=== PATIENT | female | born 1945 | race Caucasian/White ===

== ENCOUNTER → 2018-05-28 10:38 | Outpatient (CLI) | payer SELFPAY ==
[2018-05-28 12:30] LABS: Absolute Lymphocyte Count 2.32 X10^3/ul (0.83-4.51); Absolute Neutrophil Count 3.4 X10^3/uL (2.0-7.7); Basophil# 0.03 X10^3/uL; Basophil% 0.5 % (0-1); Eosinophil# 0.16 X10^3/uL; Eosinophils% 2.5 % (0-5); Hemoglobin 12.5 g/dl (12.0-15.0); Lymphocyte # 2.32 X10^3/ul (4.0); Lymphocyte % 36.7 % (19-41); Mean Corp Hgb Conc 32.1 g/gl (32-36); Mean Corpuscular Hgb 31.3 pg (27.0-32.0); Mean Corpuscular Volume 97.7 fL (81-99); Monocyte# 0.39 X10^3/uL; Monocyte% 6.2 % (0-10); Neutrophil # 3.42 X10^3/uL (2.7-7.7); Neutrophil % 53.9 % (47-70); Platelet Count 251 K/mm3 (150-450); RBC Distribution Width CV 14.4 % (11.6-14.6); RBC Distribution Width SD 51.9 fl (35.1-43.9); Red Blood Count 3.99 M/mm3 (4.2-5.4); White Blood Count 6.3 K/mm3 (4.4-11.0)
[2018-05-28 12:36] LABS: POSITIVE COUNT NO; POSITIVE DIFFERENTIAL NO; POSITIVE MORPHOLOGY NO
[2018-05-28 12:43] LABS: Vitamin D,25 Hydroxy 29.4 ng/mL (29.95-100.01)
[2018-05-28 13:01] LABS: ALB/GLOB Ratio 0.9 RATIO (0.9-2.4); AST(SGOT) 31 U/L (15-37); Alanine Aminotransfer ALT/SGPT 27 U/L (13-56); Albumin, Serum 3.5 g/dL (3.2-5.0); Alkaline Phosphatase 58 U/L (45-117); Anion Gap 7 (5-15); BUN 23 mg/dL (7-18); BUN/Creat Ratio 24.5 RATIO (10-20); Calcium,Total 9.5 mg/dL (8.5-10.1); Chloride 105 mmol/L (98-107); Creatinine, Serum 0.94 mg/dL (0.55-1.02); EST Glomerular Filtration Rate 62 mL/min (>60); Est Glom Filt Rate - Afr Amer 75 mL/min (>60); Globulin 3.7 g/dL (2.2-4.2); Glucose 111 mg/dL (74-106); Potassium 4.4 mmol/L (3.5-5.1); Protein, Total 7.2 g/dL (6.4-8.2); Sodium Level 140 mmol/L (136-145); Thyroid Stim Hormone (TSH) 3.75 uIU/mL (0.358-3.74)
[2018-05-29 08:45] LABS: Hep C Antibodies 0.1 s/co ratio (0.0-0.9)
--- OUTSIDE RECORDS SUMMARY | 2018-07-21 16:03 | XMS RPT_ITS ---
:1945 Author Organization OHIP Care Team Providers Name Role Phone BUSHRA BELL MD Admitting Unavailable BUSHRA BELL MD Attending Unavailable BUSHRA BELL MD Primary Care Unavailable KENNEDY, JOSE Consulting Unavailable PROVIDER, UNKNOWN Consulting Unavailable PROVIDER, UNKNOWN Consulting Unavailable PROVIDER, UNKNOWN Consulting Unavailable BUSHRA BELL MD Admitting Unavailable BUSHRA BELL MD Attending Unavailable BUSHRA BELL MD Primary Care Unavailable KENNEDY, JOSE Consulting Unavailable PROVIDER, UNKNOWN Consulting Unavailable PROVIDER, UNKNOWN Consulting Unavailable PROVIDER, UNKNOWN Consulting Unavailable BUSHRA BELL MD Admitting Unavailable BUSHRA BELL MD Attending Unavailable BUSHRA BELL MD Primary Care Unavailable KENNEDY, JOSE Consulting Unavailable PROVIDER, UNKNOWN Consulting Unavailable PROVIDER, UNKNOWN Consulting Unavailable PROVIDER, UNKNOWN Consulting Unavailable Akil Huang Chi Attending Unavailable PROBLEMS PROBLEMS DATE TYPE CONDITION / CODE ATTENDING STATUS SOURCE Principle Pure BUSHRA BELL Diagnosis hypercholesterolemia, [facility] E7800(ICD-10) Repository Principle Pure hypercholesterolemia BUSHRA BELL Diagnosis / E780(ICD-10) [facility] Repository PROCEDURES PROCEDURES No Procedure Records FoundRESULTS RESULTS CBC W/DIFF, AUTOMATED Collected: 05/28/2018 Status: F Source: [place] 10:44 AM [facility] REPOSITORY TYPE CODE TESTS RESULT OUT OF RANGE REFERENCE UNITS LAB L100.1000 4.4-11.0 K/mm3 Normal WBC 6.3 LAB L100.1200 4.2-5.4 M/mm3 Low RBC 3.99 LAB L100.1300 12.0-15.0 g/dl Normal HGB 12.5 LAB L100.1400 37-47 % Normal HCT 39.0 LAB L100.1500 81-99 fL Normal MCV 97.7 LAB L100.1600 27.0-32.0 pg Normal MCH 31.3 LAB L100.1700 32-36 g/gl Normal MCHC 32.1 LAB L100.1810 11.6-14.6 % Normal RDW CV 14.4 LAB L100.1820 35.1-43.9 fl High RDW SD 51.9 LAB L100.1900 150-450 K/mm3 Normal PLT 251 LAB L100.2000 6.2-12.0 fl Normal MPV 10.0 LAB L100.2100 47-70 % Normal NEUT% 53.9 LAB L100.2200 19-41 % Normal LY% 36.7 LAB L100.2300 0-10 % Normal MONO% 6.2 LAB L100.2400 0-5 % Normal EO% 2.5 LAB L100.2500 0-1 % Normal BASO% 0.5 LAB L100.2550 0.0-0.9 % Normal IM GRAN % 0.200 Result Comment: IG% - Immature Granulocytes (promyelocytes, myelocytes and metamyelocytes) > 1% indicates that a LEFT SHIFT is Present. LAB L100.2620 2.0-7.7 X10 3/uL Normal Absolute Neut 3.4 LAB L100.2720 0.83-4.51 X10 3/ul Normal Absolute Lymph 2.32 Performed By: #### L100.0100 #### [facility] [place], [place], [address] VITAMIN D,25 HYDROXY Collected: 05/28/2018 Status: F Source: [place] 10:44 AM [facility] REPOSITORY TYPE CODE TESTS RESULT OUT OF REFERENCE UNITS RANGE LAB L506.1000 29.95-100.01 ng/mL Low Vitamin D 29.4 25-OH Result Comment: Vitamin D 25(OH) Status Range Deficiency <20 ng/mL (50nmol/L) Insuffciency 20 - 30 ng/mL (50 - 75 nmol/L) Sufficiency 30 - 100 ng/mL (75 - 250 nmol/L) Toxicity >100 ng/mL (>250 nmol/L) Performed By: #### L506.1000 #### [facility] [address] [place], [address] COMPREHENSIVE METABOLIC Collected: 05/28/2018 Status: F Source: [place] 10:44 AM [facility] REPOSITORY TYPE CODE TESTS RESULT OUT OF RANGE REFERENCE UNITS LAB L501.0100 74-106 mg/dL High GLU 111 Result Comment: Fasting Glucose result from 100 to 125 mg/dL suggests IMPAIRED HOMEOSTASIS per A.D.A. criteria. Please note revised GLUCOSE reference range effective 2017. LAB L501.1000 7-18 mg/dL High BUN 23 LAB L501.1100 0.55-1.02 mg/dL Normal CREAT,SERUM 0.94 Result Comment: The validity of the calculated GFR AND GFRAA in patients over 70 years has not been determined. Clinical correlation is essential. LAB L501.1110 >60 mL/min Normal EST GFR 62 Result Comment: Non- GFR Calc LAB L501.1115 >60 mL/min Normal EST GFR - AA 75 Result Comment: GFR Calc LAB L501.1300 10-20 RATIO High BUN/CRE 24.5 LAB L501.1500 6.4-8.2 g/dL T Normal PROT 7.2 LAB L501.1800 3.2-5.0 g/dL Normal ALB 3.5 LAB L501.1950 2.2-4.2 g/dL Normal GLOB 3.7 LAB L501.2000 0.9-2.4 RATIO Normal A/G 0.9 LAB L501.2200 8.5-10.1 mg/dL CA Normal 9.5 LAB L501.4100 15-37 U/L Normal AST 31 LAB L501.4305 45-117 U/L Normal ALK P 58 LAB L501.4405 13-56 U/L Normal ALT 27 LAB L501.4600 0.20-1.00 mg/dL T Normal BILI 0.40 LAB L501.5300 136-145 mmol/L NA Normal 140 LAB L501.5600 3.5-5.1 mmol/L K Normal 4.4 LAB L501.5900 98-107 mmol/L CL Normal 105 LAB L501.6100 21.0-32.0 mmol/L Normal CO2 28.0 LAB L501.6200 5-15 Normal GAP 7 Performed By: #### L500.4050, L501.9520 #### [facility] [address] [place], [address] THYROID STIM HORMONE Collected: 05/28/2018 Status: F Source: [place] (TSH) 10:44 AM [facility] REPOSITORY TYPE CODE TESTS RESULT OUT OF RANGE REFERENCE UNITS LAB L501.9520 0.358-3.74 uIU/mL High TSH 3.75 Performed By: #### L500.4050, L501.9520 #### [facility] [address] [place], [address] HEPATITIS C ANTIBODIES Collected: 05/28/2018 Status: F Source: [place] 10:44 AM [facility] REPOSITORY TYPE CODE TESTS RESULT OUT OF RANGE REFERENCE UNITS LAB L3100.0650 0.0-0.9 s/co ratio Normal HEP C AB 0.1 Result Comment: Negative: < 0.8 Indeterminate: 0.8 - 0.9 Positive: > 0.9 The CDC recommends that a positive HCV antibody result be followed up with a HCV Nucleic Acid Amplification test (012840). Performed at: [facility] [id number] Immigration Case Worker: Kameron Perez PhD, Phone: [phone] Performed By: #### L3100.0625 #### [facility] (refer to report for specific site) refer to report for address and phone number ALLERGIES ALLERGIES DATE TYPE / CODE NAME / CODE REACTION SEVERITY SOURCE Miscellaneous No Known Drug Moderate Matty Vasquez Allergy/[id number](S Allergies ([facility]) Modifier) Hospital (Qualifier Repository Value) ENCOUNTERS ENCOUNTERS ADMIT/DISCHARGE ACCOUNT ADMITTING ENCOUNTER LOCATION SOURCE NUMBER CLASS 05/28/2018 [id number] Ambulatory [facility] 4 [facility] ing:POLAB3 Repository 09/07/2017 [id number] BUSHRA BELL Ambulatory Matty Vasquez [facility] Repository 09/07/2017 [id number] BUSHRA BELL Ambulatory Matty Vasquez [facility] Repository 09/07/2017 [id number] [facility] PAYERS PAYERS ENCOUNTER GUARANTOR PAYER SUBSCRIBER SOURCE 05/28/2018 NATALY [id number] Primary NOT GIVENUNK [place] [address] Insurance:SELF PAY [address] [address]Ukt: Number: [facility] Date:2018-05-28 ()
== END ==
PROVIDERS: Visit Provider Family Medicine Geriatric Medicine
DX: E55.9 Vitamin D deficiency, unspecified (principal); R53.83 Other fatigue; Z13.89 Encounter for screening for other disorder
CPT/HCPCS: 36415; 80053; 82306; 84443; 85025; 86803

== ENCOUNTER → 2018-07-26 11:44 | Outpatient (CLI) | payer SELFPAY ==
[2018-07-26 13:00] LABS: Thyroid Stim Hormone (TSH) 1.86 uIU/mL (0.358-3.74)
== END ==
PROVIDERS: Visit Provider Family Medicine Geriatric Medicine
DX: E03.9 Hypothyroidism, unspecified (principal)
CPT/HCPCS: 36415; 84443

== ENCOUNTER → 2018-11-01 15:52 | Outpatient (CLI) | payer SELFPAY ==
[2018-11-01 17:27] LABS: Absolute Lymphocyte Count 2.02 X10^3/ul (0.83-4.51); Basophil# 0.03 X10^3/uL; Basophil% 0.6 % (0-1); Eosinophil# 0.14 X10^3/uL; Eosinophils% 2.9 % (0-5); Hematocrit 38.5 % (37-47); Hemoglobin 12.4 g/dl (12.0-15.0); Lymphocyte # 2.02 X10^3/ul (4.0); Lymphocyte % 41.8 % (19-41); Mean Corp Hgb Conc 32.2 g/gl (32-36); Mean Corpuscular Hgb 31.3 pg (27.0-32.0); Mean Corpuscular Volume 97.2 fL (81-99); Mean Platelet Vol. 10.4 fl (6.2-12.0); Monocyte# 0.67 X10^3/uL; Monocyte% 13.9 % (0-10); Neutrophil # 1.96 X10^3/uL (2.7-7.7); Neutrophil % 40.6 % (47-70); Platelet Count 230 K/mm3 (150-450); RBC Distribution Width CV 14.9 % (11.6-14.6); Red Blood Count 3.96 M/mm3 (4.2-5.4); White Blood Count 4.8 K/mm3 (4.4-11.0)
[2018-11-01 17:34] LABS: POSITIVE COUNT NO; POSITIVE DIFFERENTIAL NO; POSITIVE MORPHOLOGY NO
[2018-11-01 18:08] LABS: Vitamin D,25 Hydroxy 20.7 ng/mL (29.95-100.01)
[2018-11-01 18:34] LABS: AST(SGOT) 34 U/L (15-37); Alanine Aminotransfer ALT/SGPT 29 U/L (13-56); Albumin, Serum 3.7 g/dL (3.2-5.0); Alkaline Phosphatase 50 U/L (45-117); Anion Gap 9 (5-15); BUN 22 mg/dL (7-18); Calcium,Total 8.9 mg/dL (8.5-10.1); Chloride 105 mmol/L (98-107); Cholesterol 255 mg/dL (200); Creatinine, Serum 0.92 mg/dL (0.55-1.02); EST Glomerular Filtration Rate 64 mL/min (>60); Est Glom Filt Rate - Afr Amer 77 mL/min (>60); Globulin 3.8 g/dL (2.2-4.2); Glucose 62 mg/dL (74-106); High Density Lipoprotein 95 mg/dL; Potassium 4.4 mmol/L (3.5-5.1); Protein, Total 7.5 g/dL (6.4-8.2); Sodium Level 138 mmol/L (136-145); Thyroid Stim Hormone (TSH) 2.43 uIU/mL (0.358-3.74); Triglycerides 33 mg/dL; Very Low Density Lipoprotein 7 mg/dL (5-40)
== END ==
PROVIDERS: Visit Provider Family Medicine Geriatric Medicine
DX: E55.9 Vitamin D deficiency, unspecified (principal); E78.5 Hyperlipidemia, unspecified; R53.83 Other fatigue
CPT/HCPCS: 36415; 80053; 80061; 82306; 84443; 85025

== ENCOUNTER → 2018-12-17 14:26 | Outpatient (CLI) | payer SELFPAY ==
[2018-11-28 16:05] VITALS: BMI 27.6
--- NOTE | 2018-12-17 14:32 | ECHOD_ITS ---
Reason For Study: Arrhythmia Procedure This was a 2D Doppler, Color Flow transthoracic echocardiogram. Exam performed in department. Left Ventricle Normal LV size. Left ventricular systolic function is normal. The estimated ejection fraction is 60 %. Stage 1 diastolic dysfunction. No regional wall motion abnormalities noted. Right Ventricle Normal RV size. Normal systolic function. Atria Normal left atrium. Normal right atrium. Mitral Valve Normal mitral valve. Mild (1+) mitral valve insufficiency. Tricuspid Valve Normal tricuspid valve. Aortic Valve Normal aortic valve. Trisinus/trileaflet aortic valve. Trivial aortic valve insufficiency. Pulmonic Valve Normal pulmonic valve. Great Vessels Normal aortic root. The pulmonary artery is normal size. Normal inferior vena cava. Pericardium/Pleural No pericardial effusion. MMode/2D Measurements & Calculations RVDd: 2.7 cm Ao root diam: 3.1 cm LAV(MOD-bp): 32.7 ml LAV(MOD-bp) Indexed: 19.9 ml/m2 LAV(MOD-sp2): 32.0 ml LAV(MOD-sp4): 32.2 ml LA dimension(2D): 3.6 cm LA A4 area: 13.1 cm2 RA A4 area: 12.2 cm2 Doppler Measurements & Calculations MV E max thom: 46.9 cm/sec Lat Peak E' Thom: 3.9 cm/sec Med Peak E' Thom: 7.0 cm/sec MV A max thom: 70.7 cm/sec E/E' lat: 11.9 E/E' med: 6.7 MV E/A: 0.66 Ao V2 max: 122.8 cm/sec AI max thom: 407.9 cm/sec LV V1 max: 99.1 cm/sec Ao max P.0 mmHg AI max P.6 mmHg LV V1 max P.9 mmHg AI dec slope: 268.4 cm/sec2 AI P1/2t: 445.2 msec PA V2 max: 110.3 cm/sec TR max thom: 248.6 cm/sec TR max P.9 mmHg Interpretation Summary Normal LV size. Left ventricular systolic function is normal. The estimated ejection fraction is 60 %. No regional wall motion abnormalities noted. Stage 1 diastolic dysfunction. Trivial aortic valve insufficiency. Ordering Physician: Cem Jean Baptiste Referring Physician: Akil Huang Chi Performed By: Mee Platt RDCS
== END ==
PROVIDERS: Family Provider Family Medicine Geriatric Medicine; PCP Family Medicine Geriatric Medicine; Referring Provider Internal Medicine Cardiovascular Disease; Visit Provider Internal Medicine Cardiovascular Disease
DX: R00.2 Palpitations (principal)
CPT/HCPCS: 93306

== ENCOUNTER → 2019-05-06 10:41 | Outpatient (CLI) | payer OTHER, SELFPAY ==
[2018-11-28 16:05] VITALS: BMI 27.6
[2019-05-06 12:23] LABS: Absolute Lymphocyte Count 1.89 X10^3/uL (0.83-4.51); Absolute Neutrophil Count 3.2 X10^3/uL (2.0-7.7); Basophil# 0.04 X10^3/uL; Basophil% 0.7 % (0-1); Eosinophil# 0.23 X10^3/uL; Eosinophils% 3.9 % (0-5); Hematocrit 36.6 % (37-47); Hemoglobin 11.8 g/dL (12.0-15.0); Lymphocyte # 1.89 X10^3/ul (4.0); Lymphocyte % 32.4 % (19-41); Mean Corp Hgb Conc 32.2 g/dL (32-36); Mean Corpuscular Hgb 31.8 pg (27.0-32.0); Mean Corpuscular Volume 98.7 fL (81-99); Mean Platelet Vol. 10.4 fl (6.2-12.0); Monocyte# 0.45 X10^3/uL; Monocyte% 7.7 % (0-10); NRBC Flagged by Analyzer 0 % (0-5); Neutrophil # 3.22 X10^3/uL (2.7-7.7); Neutrophil % 55.1 % (47-70); Platelet Count 235 K/mm3 (150-450); RBC Distribution Width SD 50.5 fl (35.1-43.9); Red Blood Count 3.71 M/mm3 (4.2-5.4); White Blood Count 5.8 K/mm3 (4.4-11.0)
[2019-05-06 12:44] LABS: Vitamin D,25 Hydroxy 27.2 ng/mL (29.95-100.01)
[2019-05-06 12:52] LABS: BUN 26 mg/dL (7-18); BUN/Creat Ratio 26.4 RATIO (10-20); Creatinine, Serum 0.99 mg/dL (0.55-1.02); EST Glomerular Filtration Rate 59 mL/min (>60); Est Glom Filt Rate - Afr Amer 71 mL/min (>60); Glucose 87 mg/dL (74-106)
[2019-05-06 12:53] LABS: ALB/GLOB Ratio 0.9 RATIO (0.9-2.4); AST(SGOT) 23 U/L (15-37); Alanine Aminotransfer ALT/SGPT 23 U/L (13-56); Albumin, Serum 3.2 g/dL (3.2-5.0); Alkaline Phosphatase 51 U/L (45-117); Anion Gap 7 (5-15); Calcium,Total 9.2 mg/dL (8.5-10.1); Chloride 107 mmol/L (98-107); Globulin 3.5 g/dL (2.2-4.2); Potassium 4.5 mmol/L (3.5-5.1); Protein, Total 6.7 g/dL (6.4-8.2); Sodium Level 141 mmol/L (136-145); Thyroid Stim Hormone (TSH) 2.05 uIU/mL (0.358-3.74)
== END ==
PROVIDERS: Family Provider Family Medicine Geriatric Medicine; PCP Family Medicine Geriatric Medicine; Visit Provider Family Medicine Geriatric Medicine
DX: E55.9 Vitamin D deficiency, unspecified (principal); R53.83 Other fatigue
CPT/HCPCS: 36415; 80053; 82306; 84443; 85025

== ENCOUNTER → 2019-11-07 11:31 | Outpatient (CLI) | payer SELFPAY ==
[2018-11-28 16:05] VITALS: BMI 27.6
[2019-11-07 12:33] LABS: Absolute Neutrophil Count 2.8 X10^3/uL (2.0-7.7); Basophil# 0.04 X10^3/uL; Basophil% 0.7 % (0-1); Eosinophil# 0.22 X10^3/uL; Eosinophils% 3.6 % (0-5); Hematocrit 38.3 % (37-47); Hemoglobin 12.4 g/dL (12.0-15.0); Lymphocyte % 40.8 % (19-41); Mean Corp Hgb Conc 32.4 g/dL (32-36); Mean Corpuscular Hgb 31.3 pg (27.0-32.0); Mean Corpuscular Volume 96.7 fL (81-99); Mean Platelet Vol. 9.9 fl (6.2-12.0); Monocyte# 0.54 X10^3/uL; Monocyte% 8.8 % (0-10); NRBC Flagged by Analyzer 0 % (0-5); Neutrophil # 2.81 X10^3/uL (2.7-7.7); Neutrophil % 45.9 % (47-70); Platelet Count 229 K/mm3 (150-450); RBC Distribution Width SD 49.6 fl (35.1-43.9); Red Blood Count 3.96 M/mm3 (4.2-5.4); White Blood Count 6.1 K/mm3 (4.4-11.0)
[2019-11-07 12:53] LABS: Vitamin D,25 Hydroxy 39.8 ng/mL
[2019-11-07 13:01] LABS: ALB/GLOB Ratio 0.9 RATIO (0.9-2.4); AST(SGOT) 29 U/L (15-37); Alanine Aminotransfer ALT/SGPT 31 U/L (13-56); Albumin, Serum 3.5 g/dL (3.2-5.0); Alkaline Phosphatase 56 U/L (45-117); Anion Gap 7 (5-15); BUN 28 mg/dL (7-18); BUN/Creat Ratio 30.1 RATIO (10-20); Calcium,Total 9.9 mg/dL (8.5-10.1); Chloride 103 mmol/L (98-107); Creatinine, Serum 0.93 mg/dL (0.55-1.02); EST Glomerular Filtration Rate 62 mL/min (>60); Est Glom Filt Rate - Afr Amer 76 mL/min (>60); Globulin 3.8 g/dL (2.2-4.2); Glucose 79 mg/dL (74-106); Potassium 4.6 mmol/L (3.5-5.1); Protein, Total 7.3 g/dL (6.4-8.2); Sodium Level 140 mmol/L (136-145); Thyroid Stim Hormone (TSH) 2.63 uIU/mL (0.358-3.74)
== END ==
PROVIDERS: PCP Family Medicine Geriatric Medicine; Visit Provider Family Medicine Geriatric Medicine
DX: E55.9 Vitamin D deficiency, unspecified (principal); R53.83 Other fatigue
CPT/HCPCS: 36415; 80053; 82306; 84443; 85025

== ENCOUNTER 2020-04-07 19:57 | Emergency (ER) | payer OTHER, SELFPAY ==
[2018-11-28 16:05] VITALS: BMI 27.6
[2020-04-07 19:58] VITALS: BP 147/95; PULSE 96; RESP 16; TEMP 36.3; O2SAT 99; BMI 26.6
--- NOTE | 2020-04-07 20:11 | ED.DCSUM_ITS ---
History of Present Illness Chief Complaint: General Illness Detail of Chief Complaint: Abdominal discomfort, nausea, diarrhea, aches and headache Informant: Patient, Family Onset: Weeks Context: Sudden Onset Timing: Continuous Quality: Headache and GI symptoms with decreased appetite Location: Generalized Current Severity: Mild Maximum Severity: Moderate Worsened by: Nothing Relieved by: Nothing Associated Symptoms: Subjective fever. Decreased appetite. Decreased urine output, orthostatic Narrative: Patient is 74-year-old woman with no sniffing past medical history presents with generalized illness started 1 week ago. She does complain of head discomfort aches. She developed abdominal fullness/nausea with onset of diarrhea 3 to 4 days ago. States she is having watery stools. She only had 1 watery stool today. She denies blood or mucus. Denies blood or coffee grounds in emesis. She denies documented fever. She complains of subjective fever. She denies photophobia, neck pain or neck stiffness. She denies upper respiratory symptoms. She denies loss of taste or smell. She denies ill contacts. She denies dysuria, frequency, urgency or hematuria. She denies rash. Prior similar symptoms: No Recent Illness/Hospitalization: No - Past Medical History (1) Hyperlipidemia Status: Chronic Past Medical History - Allergies and Home Meds Allergies/Adverse Reactions: Allergies No Known Allergies Allergy (Verified 04/07/20 20:00) Primary Care Physician: Akil Huang Chi, MD [Primary Care Provider] - Prior records reviewed: Yes Surgical History: no surgical history Lives: With Family Smoking Status: Never smoker Alcohol: None Drugs: None Review of Systems General: Reports: Fever, Malaise, Subjective. Denies: Chills, Sweats, Weight loss Eyes: Denies: Visual changes - bilaterally, Blurred Vision - bilaterally ENT: Denies: Bilateral ear pain, Rhinorrhea, Sore throat Cardiovascular: Denies: Chest pain, Palpitations Respiratory: Denies: Dyspnea, Cough, Sputum, Dyspnea on exertion Gastrointestinal: Reports: Abdominal pain, Nausea, Diarrhea. Denies: Vomiting, Melena, Hematochezia Genitourinary: Denies: Dysuria, Hematuria, Frequency Musculoskeletal: Reports: Myalgias, Arthralgias. Denies: Neck pain, Back pain, Swelling, Extremity Pain, -, - Skin: Denies: Rash, Wounds Neurological: Reports: Headache, Weakness. Denies: Parasthesia, Numbness Endocrine: Denies: Polyuria, Polydipsia Hematologic: Denies: Easy bruising, Easy bleeding Allergy: Denies: Uticaria Physical Exam Vital Signs/Narrative: Vital Signs Temp Pulse Resp BP Pulse Ox 04/07/20 19:58 97.3 F L 96 16 147/95 H 99 Inital Vital Signs reviewed: Yes General: Well nourished, Well developed, - - Appears ill but not toxic. Head: Normocephalic, Atraumatic Eyes: Perrl, EOMI. Negative for: Pale conjunctiva, Scleral icterus ENT: No rhinorrhea, TM's clear, Dry mucous membranes. Negative for: Nasal congestion Neck: Supple, Nontender, No lymphadenopathy, No JVD Cardiovascular: Regular rate, Regular rhythm, No murmurs, Normal S1, Normal S2 Respiratory: No distress, CTA bilaterally, Chest nontender Abdomen: Soft, Nontender, Nondistended, Normal bowel sounds, No masses Rectal: Deferred Back: Nontender, Normal Inspection Extremities: Nontender, No edema Skin: Normal color, No rash Neurological: Alert, Oriented x3, Cranial nerves II-XII grossly intact, Normal Strength, Normal Sensation, Normal Gait Psychological: Normal affect Diagnostic/Tx/Re-eval Laboratory Results 04/07/20 04/07/20 20:15 20:15 WBC 3.2 L RBC 4.25 Hgb 13.6 Hct 40.6 MCV 95.5 MCH 32.0 MCHC 33.5 RDW Std Deviation 47.3 H RDW Coeff of Chandan 13.4 Plt Count 175 MPV 10.0 Immature Gran % (Auto) 0.600 Neut % (Auto) 55.5 Lymph % (Auto) 34.0 [place] % (Auto) 9.6 Eos % (Auto) 0.0 Baso % (Auto) 0.3 Absolute Neuts (auto) 1.8 L Absolute Lymphs (auto) 1.10 Nucleated RBC % 0 Sodium 135 L Potassium 3.5 Chloride 101 Carbon Dioxide 27.0 Anion Gap 7 BUN 9 Creatinine 0.86 Estim Creat Clear Calc 42.65 Est GFR (MDRD) Af Amer 82 Est GFR (MDRD) Non-Af 68 BUN/Creatinine Ratio 10.4 Glucose 99 Calcium 9.2 There is no evidence of renal failure and with a low white count will test for COVID. Patient's been informed that she has a viral infection and this may represent COVID. She was discharged with prescription for Zofran ODT and Imodium - Medical Decision Making Patient symptoms consistent with viral-like illness. No known exposure to COVID or anyone ill. Because of poor p.o. intake decreased urine output and clinically patient is dehydrated will obtain basic metabolic panel/electrolytes and renal function. He does appear slightly pale and reason for CBC to evaluate for anemia. She received 4 mg of Zofran for her nausea and 1 L of normal saline. ED Disposition - Plan for ED Patient: Disposition: Home or Assisted Living Diagnosis: Viral infection of digestive tract, Suspected COVID-19 virus infection Instructions: ED Viral Syndrome Prescriptions: Loperamide [Imodium] 2 mg PO Q4H PRN PRN #20 cap PRN Reason: Diarrhea Transmission Status: [facility] to [id number] Ondansetron [Zofran Odt] 4 mg PO Q8H PRN PRN #10 tab PRN Reason: Nausea Transmission Status: Pending to [id number] Referrals: Akil Huang Chi, MD [Primary Care Provider] - 1 Week if not improving Additional Instructions: You need to self quarantine until your COVID test results are known.
[2020-04-07] MEDS: Ondansetron 4 MG/2 ML Vial IV (20:19)
[2020-04-07] MEDS: 0.9% Normal Saline 1,000 ML 1000 ML IV (20:19)
[2020-04-07 20:29] LABS: Absolute Neutrophil Count 1.8 X10^3/uL (2.0-7.7); Basophil# 0.01 X10^3/uL; Basophil% 0.3 % (0-1); Hematocrit 40.6 % (37-47); Hemoglobin 13.6 g/dL (12.0-15.0); Mean Corp Hgb Conc 33.5 g/dL (32-36); Mean Corpuscular Volume 95.5 fL (81-99); Monocyte# 0.31 X10^3/uL; Monocyte% 9.6 % (0-10); NRBC Flagged by Analyzer 0 % (0-5); Neutrophil % 55.5 % (47-70); Platelet Count 175 K/mm3 (150-450); RBC Distribution Width CV 13.4 % (11.6-14.6); RBC Distribution Width SD 47.3 fl (35.1-43.9); Red Blood Count 4.25 M/mm3 (4.2-5.4); White Blood Count 3.2 K/mm3 (4.4-11.0)
[2020-04-07 20:50] LABS: Anion Gap 7 (5-15); BUN 9 mg/dL (7-18); BUN/Creat Ratio 10.4 RATIO (10-20); Calcium,Total 9.2 mg/dL (8.5-10.1); Chloride 101 mmol/L (98-107); Creatinine, Serum 0.86 mg/dL (0.55-1.02); EST Glomerular Filtration Rate 68 mL/min (>60); Est Glom Filt Rate - Afr Amer 82 mL/min (>60); Estimated Creatinine Clearance 42.65 ml/min; Glucose 99 mg/dL (74-106); Potassium 3.5 mmol/L (3.5-5.1); Sodium Level 135 mmol/L (136-145)
[2020-04-07] MEDS: Loperamide 2 MG Capsule 4 MG PO (21:47)
[2020-04-07 21:50] VITALS: TEMP 37.6
[2020-04-07] MEDS: Acetaminophen 325 MG Tablet 650 MG PO (22:02)
== END 2020-04-07 22:03 | disposition home or self-care (01) ==
PROVIDERS: Emergency Provider Emergency Medicine; PCP Family Medicine Geriatric Medicine
DX: U07.1 COVID-19 (principal); E78.5 Hyperlipidemia, unspecified
CPT/HCPCS: 80048; 85025; 87635; 96361; 96374; 99281; J7030; A4216; J2405; U0003

== ENCOUNTER → 2020-05-07 10:47 | Outpatient (CLI) | payer SELFPAY ==
[2020-04-07 19:58] VITALS: BMI 26.6
[2020-05-07 12:31] LABS: Absolute Lymphocyte Count 2.16 X10^3/uL (0.83-4.51); Absolute Neutrophil Count 3.4 X10^3/uL (2.0-7.7); Basophil% 1.5 % (0-1); Eosinophil# 0.42 X10^3/uL; Eosinophils% 6.4 % (0-5); Hematocrit 38.1 % (37-47); Hemoglobin 12.1 g/dL (12.0-15.0); Lymphocyte # 2.16 X10^3/ul (4.0); Lymphocyte % 32.9 % (19-41); Mean Corp Hgb Conc 31.8 g/dL (32-36); Mean Corpuscular Hgb 31.1 pg (27.0-32.0); Mean Corpuscular Volume 97.9 fL (81-99); Mean Platelet Vol. 9.8 fl (6.2-12.0); Monocyte# 0.48 X10^3/uL; Monocyte% 7.3 % (0-10); NRBC Flagged by Analyzer 0 % (0-5); Neutrophil # 3.37 X10^3/uL (2.7-7.7); Neutrophil % 51.4 % (47-70); Platelet Count 242 K/mm3 (150-450); RBC Distribution Width CV 13.8 % (11.6-14.6); RBC Distribution Width SD 50.1 fl (35.1-43.9); Red Blood Count 3.89 M/mm3 (4.2-5.4); White Blood Count 6.6 K/mm3 (4.4-11.0)
[2020-05-07 12:47] LABS: Vitamin D,25 Hydroxy 69.6 ng/mL
[2020-05-07 12:54] LABS: ALB/GLOB Ratio 0.9 RATIO (0.9-2.4); AST(SGOT) 25 U/L (15-37); Alanine Aminotransfer ALT/SGPT 24 U/L (13-56); Albumin, Serum 3.4 g/dL (3.2-5.0); Alkaline Phosphatase 55 U/L (45-117); Anion Gap 5 (5-15); BUN 20 mg/dL (7-18); BUN/Creat Ratio 19.4 RATIO (10-20); Calcium,Total 9.6 mg/dL (8.5-10.1); Chloride 108 mmol/L (98-107); Creatinine, Serum 1.03 mg/dL (0.55-1.02); EST Glomerular Filtration Rate 56 mL/min (>60); Est Glom Filt Rate - Afr Amer 67 mL/min (>60); Globulin 3.9 g/dL (2.2-4.2); Glucose 81 mg/dL (74-106); Potassium 4.1 mmol/L (3.5-5.1); Protein, Total 7.3 g/dL (6.4-8.2); Sodium Level 140 mmol/L (136-145)
== END ==
PROVIDERS: PCP Family Medicine Geriatric Medicine; Visit Provider Family Medicine Geriatric Medicine
DX: I10 Essential (primary) hypertension (principal); E55.9 Vitamin D deficiency, unspecified
CPT/HCPCS: 36415; 80053; 82306; 84443; 85025

== ENCOUNTER 2020-05-10 20:27 | Observation (INO) | payer OTHER, SELFPAY ==
[2020-05-10 20:28] VITALS: BP 146/73; PULSE 97; RESP 16; TEMP 36.2; O2SAT 98; BMI 25.9
--- NOTE | 2020-05-10 20:46 | EKG12_ITS ---
Test Reason : PALPATATIONS Blood Pressure : / mmHG Vent. Rate : 106 BPM Atrial Rate : 115 BPM P-R Int : 000 ms QRS Dur : 078 ms QT Int : 320 ms P-R-T Axes : 000 025 -34 degrees QTc Int : 425 ms Atrial fibrillation with rapid ventricular response Nonspecific ST and T wave abnormality Abnormal ECG Confirmed by AFSHIN BOLAND, LALITA ([id number]), staff editor JEWELS PICKENS ([id number]) on 05/12/2020 12:59:36 PM Referred By: LYNN GUTIERRES Confirmed By:LALITA PEPE MD
--- NOTE | 2020-05-10 20:47 | ED.VIS.GEN ---
History of Present Illness Chief Complaint: Palpitations Informant: Patient Onset: Yesterday Timing: Waxes and wanes Current Severity: Mild Maximum Severity: Moderate Narrative: Patient presents secondary to palpitations and lightheadedness. She states she noted symptoms yesterday and she feels like her heart is beating irregularly and fast at times. She does have a history of palpitations but does not remember if this is similar. She denies any known diagnoses of arrhythmias. - Past Medical History (1) Hypothyroidism Status: Chronic Past Medical History - Allergies and Home Meds Allergies/Adverse Reactions: Allergies No Known Allergies Allergy (Verified 05/10/20 20:30) Primary Care Physician: Akil Huang Chi, MD [Primary Care Provider] - Surgical History: no surgical history Lives: With Family Smoking Status: Never smoker Review of Systems General: Denies: Chills, Fever Eyes: Denies: Visual changes - bilaterally ENT: Denies: Bilateral ear pain Cardiovascular: Reports: Palpitations. Denies: Chest pain Respiratory: Denies: Dyspnea, Cough Gastrointestinal: Denies: Abdominal pain, Nausea, Vomiting Musculoskeletal: Denies: Extremity Pain Skin: Denies: Rash Hematologic: Denies: Easy bruising, Easy bleeding Allergy: Denies: Uticaria Physical Exam Vital Signs/Narrative: Vital Signs Temp Pulse Resp BP Pulse Ox 05/10/20 20:28 97.2 F L 97 16 146/73 H 98 Inital Vital Signs reviewed: Yes General: Well nourished, Well developed Head: Normocephalic ENT: Moist mucous membranes Cardiovascular: Irregular, Tachycardia Respiratory: No distress, CTA bilaterally Abdomen: Soft, Nontender Skin: Normal color Neurological: Alert, Oriented x3 Psychological: Normal affect Diagnostic/Tx/Re-eval Impressions Chest X-Ray 05/10/20 21:07 IMPRESSION: Linear opacity in the left lower lobe which likely represents atelectasis. Otherwise, clear lungs. Electronically Signed: Sonido Katie, at 21:18 EST Tel , Service support , 05/10/20 21:07 Chest 1 View (Portable) [RAD] Stat Laboratory Results 05/10/20 05/10/20 22:10 22:10 WBC 6.0 RBC 3.81 L Hgb 12.1 Hct 37.0 MCV 97.1 MCH 31.8 MCHC 32.7 RDW Std Deviation 49.8 H RDW Coeff of Chandan 14.1 Plt Count 238 MPV 9.5 Immature Gran % (Auto) 0.200 Neut % (Auto) 50.3 Lymph % (Auto) 37.1 [place] % (Auto) 7.2 Eos % (Auto) 4.0 Baso % (Auto) 1.2 H Absolute Neuts (auto) 3.0 Absolute Lymphs (auto) 2.22 Nucleated RBC % 0 Sodium 141 Potassium 3.8 Chloride 111 H Carbon Dioxide 26.0 Anion Gap 4 L BUN 15 Creatinine 0.85 Estim Creat Clear Calc 43.15 Est GFR (MDRD) Af Amer 84 Est GFR (MDRD) Non-Af 70 BUN/Creatinine Ratio 17.7 Glucose 96 Calcium 9.4 Troponin I 0.043 TSH 2.49 - EKG Initial EKG Interpretation: Atrial Fibrillation - A. fib at 106. Nonspecific T wave flattening. - Medical Decision Making Patient was given 5 mg of IV metoprolol. Heart rate improved to the mid 80s. She was given a dose of Lovenox. Blood work is unremarkable at this time. Patient be admitted for further evaluation of her new onset atrial fibrillation. ED Disposition - Plan for ED Patient: Disposition: Acute Care Hospital [facility] Diagnosis: Atrial fibrillation Referrals: Akil Huang Chi, MD [Primary Care Provider] -
[2020-05-10 20:54] VITALS: BP 152/83; PULSE 112; RESP 16; O2SAT 96
[2020-05-10] MEDS: Metoprolol Tartrate 5 MG/5 ML Vial IV (20:58)
[2020-05-10] MEDS: Enoxaparin 60 MG/0.6 ML Syringe SC (21:00)
[2020-05-10] MEDS: 0.9% Normal Saline 1,000 ML 150 ML IV (21:00)
--- NOTE | 2020-05-10 21:07 | RAD_ITS ---
STUDY: X-RAY CHEST REASON FOR EXAM: Female, 74 years old. Palpitations. TECHNIQUE: Frontal view of the chest COMPARISON: None. FINDINGS: There is linear opacity in the left lower lobe which likely represents atelectasis. The lungs are otherwise clear. There are no pleural effusions. There is no pneumothorax. The heart is normal in size. The visualized osseous structures are within normal limits. RAD/Chest 1 View (Portable) IMPRESSION: Linear opacity in the left lower lobe which likely represents atelectasis. Otherwise, clear lungs. Electronically Signed: Sonido Wilson, at 21:18 EST Tel , Service support ,
--- NOTE | 2020-05-10 21:31 | ED.RN ---
called lab to come draw labs.
[2020-05-10 22:14] VITALS: BP 133/77; PULSE 92; RESP 17; O2SAT 97
[2020-05-10 22:22] LABS: Absolute Lymphocyte Count 2.22 X10^3/uL (0.83-4.51); Basophil# 0.07 X10^3/uL; Basophil% 1.2 % (0-1); Eosinophil# 0.24 X10^3/uL; Hemoglobin 12.1 g/dL (12.0-15.0); Lymphocyte # 2.22 X10^3/ul (4.0); Lymphocyte % 37.1 % (19-41); Mean Corp Hgb Conc 32.7 g/dL (32-36); Mean Corpuscular Hgb 31.8 pg (27.0-32.0); Mean Corpuscular Volume 97.1 fL (81-99); Mean Platelet Vol. 9.5 fl (6.2-12.0); Monocyte# 0.43 X10^3/uL; Monocyte% 7.2 % (0-10); NRBC Flagged by Analyzer 0 % (0-5); Neutrophil # 3.02 X10^3/uL (2.7-7.7); Neutrophil % 50.3 % (47-70); Platelet Count 238 K/mm3 (150-450); RBC Distribution Width CV 14.1 % (11.6-14.6); RBC Distribution Width SD 49.8 fl (35.1-43.9); Red Blood Count 3.81 M/mm3 (4.2-5.4)
[2020-05-10 22:48] LABS: Anion Gap 4 (5-15); BUN 15 mg/dL (7-18); BUN/Creat Ratio 17.7 RATIO (10-20); Calcium,Total 9.4 mg/dL (8.5-10.1); Chloride 111 mmol/L (98-107); Creatinine, Serum 0.85 mg/dL (0.55-1.02); EST Glomerular Filtration Rate 70 mL/min (>60); Est Glom Filt Rate - Afr Amer 84 mL/min (>60); Estimated Creatinine Clearance 43.15 ml/min; Glucose 96 mg/dL (74-106); Potassium 3.8 mmol/L (3.5-5.1); Sodium Level 141 mmol/L (136-145); Thyroid Stim Hormone (TSH) 2.49 uIU/mL (0.358-3.74)
[2020-05-10 23:03] VITALS: BP 115/85; PULSE 92; RESP 17; TEMP 36.2; O2SAT 96
--- NOTE | 2020-05-10 23:47 | ECHOD_ITS ---
Reason For Study: ATRIAL FIB/FLUTTER Procedure This was a 2D Doppler, Color Flow transthoracic echocardiogram. Exam performed portable in patient room. Left Ventricle Normal LV size. Moderate concentric left ventricular hypertrophy. Left ventricular systolic function is normal. The estimated ejection fraction is 60 %. Right Ventricle Normal RV size. Normal systolic function. Mitral Valve Normal mitral valve. Tricuspid Valve Normal tricuspid valve. Mild (1+) tricuspid valve insufficiency. Pulmonary artery systolic pressure is 28 mmHg. Aortic Valve Mild (1+) aortic valve insufficiency. Pulmonic Valve The pulmonic valve is not well visualized. Great Vessels Normal aortic root. The pulmonary artery is normal size. The inferior vena cava is dilated. Pericardium/Pleural No pericardial effusion. MMode/2D Measurements & Calculations LVIDd: 3.3 cm IVSd: 1.4 cm Ao root diam: 3.3 cm LVIDs: 2.3 cm LVPWd: 1.4 cm RVDd: 2.8 cm FS: 29.9 % LAV(MOD-bp): 41.1 ml LA A4 area: 15.8 cm2 LA dimension(2D): 3.5 cm LAV(MOD-bp) Indexed: 25.7 ml/m2 LAV(MOD-sp2): 40.0 ml LAV(MOD-sp4): 40.5 ml RA A4 area: 11.3 cm2 Doppler Measurements & Calculations MV E max juli: 79.5 cm/sec Ao V2 max: 100.7 cm/sec LV V1 max: 79.3 cm/sec Ao max P.1 mmHg LV V1 max P.5 mmHg PA V2 max: 67.8 cm/sec TR max juli: 244.8 cm/sec TR max P.0 mmHg Interpretation Summary Normal LV size. Moderate concentric left ventricular hypertrophy. Left ventricular systolic function is normal. The estimated ejection fraction is 60 %. Pulmonary artery systolic pressure is 28 mmHg. Ordering Physician: Rolf Lambert Referring Physician: Akil Huang Chi Performed By: Debbie Guzman, MIRELLA, RVT
[2020-05-10 23:52] VITALS: BMI 25.7
--- NOTE | 2020-05-10 23:56 | NURSING ---
Pt takes several vitamins. States she takes Formula 5, Nattaveno. Unsure of doses.
[2020-05-10 23:59] VITALS: BMI 25.7
[2020-05-11] VITALS (10 sets, daily range): BP systolic 107–129; BP diastolic 67–77; PULSE 78–97; RESP 14–18; TEMP 36.8–37; O2SAT 96–97
[2020-05-11] MEDS: Metoprolol Tartrate 25 MG Tablet PO ×2 (00:24→08:07)
--- NOTE | 2020-05-11 00:26 | HP.PCM_ITS ---
Problem List (1) Atrial fibrillation Status: Acute History of Present Illness Date of Admission: 05/10/20 Chief Complaint: Palpitations Patient was seen and examined before midnight of 05/11/2020. The patient is a 74 year old F with a significant history of hypothyroidism and hyperlipidemia who presented to the emergency department with palpitations that started a day before her presentation. Associated with her symptoms is lightheadedness. In the past patient had some palpitation but it was transient. In regard to her current symptoms palpitation is persistent. Patient saw cardiology on 11/28/2018 where she complained of palpitations. Echocardiogram was ordered at that time. COVID-19 test on 04/07/2020 was positive. Past Medical History Past Medical History (Chronic Problems): Chronic Problems (Last Reviewed 05/11/20 @ 00:[address] Rolf Lambert MD) Hypothyroidism (Chronic) Hyperlipidemia (Chronic) Medical History: Medical History (Last Reviewed 05/11/20 @ 01:[address] Rolf Lambert MD) Hyperlipidemia (Chronic) E78.5 Hypothyroidism E03.9 Insomnia G47.00 Allergies No Known Allergies Allergy (Verified 05/10/20 20:30) Home Medications: Ambulatory Orders Medication Instructions Recorded Levothyroxine Sodium 25 mcg PO DAILY 04/07/20 Aspirin [Aspirin, Baby] 81 mg PO DAILY 05/10/20 Vitamin C 05/10/20 Surgical History: no surgical history Lives: With Family Smoking Status: Never smoker - *Family History Maternal Family History: Family History (Last Reviewed 05/11/20 @ 00:[address] Rolf Lambert MD) Sister CAD (coronary artery disease) Father CVA (cerebral vascular accident) Sister Heart disease Review of Systems Constitutional: Denies: Chills, Fever, Weight Change HEENT: Denies: Head Aches, Sinus Congestion, Sinus Drainage Cardiovascular: Reports: Light Headedness, Palpitations. Denies: Chest Pain Respiratory: Denies: Cough, Shortness of breath at rest, Sputum production Gastrointestinal: Denies: Abdominal Pain, Nausea, Vomiting Genitourinary: Denies: Dysuria Musculoskeletal: Denies: Joint Pain, Joint Tenderness Skin: Denies: Rash, Wounds Neurological: Denies: Numbness, Tingling, Focal weakness Psychiatric: Denies: Anxiety, Depression, Homicidal Ideations, Suicidal Ideations Hematologic/ Lymphatic: Denies: Easy Bruising, Easy Bleeding VTE Information - Inpt Only VTE Present on Admission: No VTE Mechan Device Prophylaxis: None VTE Pharm Prophylaxis ordered?: No Reason prophylaxis not ordered:: Treatment Not Indicated - Therapeutic anticoagulation treatment for A. fib. Patient Problems: Active and Suspected Problems (Last Reviewed 05/11/20 @ 00:[address] Rolf Lambert MD) Atrial fibrillation (Acute) - Physical Exam Vitals/I&O's: Vital Signs Temp Pulse Resp BP Pulse Ox 98.6 F 92 16 123/74 H 97 05/11/20 00:18 05/11/20 00:24 05/11/20 00:18 05/11/20 00:18 05/11/20 00:18 Oxygen Delivery Method Room Air Weight: 61.7 kg Body Mass Index (BMI) 25.7 Intake and Output for Last 24 Hours 05/09/20 05/10/20 05/11/20 23:59 23:59 23:59 Intake Total 600 / 600 Output Total 0 / 0 Balance 600 / 600 General: Alert, Oriented x3, Cooperative HEENT: Atraumatic, PERRLA, EOMI, Normocephalic Neck: Supple, No JVD, Negative Carotid Bruits Lungs: Clear to auscultation, Normal air movement, No rhonchi, No wheeze, No rales Cardiovascular: Normal S1, Normal S2, No murmurs, Irregular Rate Abdomen: Bowel Sounds Present, Soft, Non Tender Extremities: No edema, Capillary Refill Less than 3 Seconds Skin: No rashes, No breakdown Musculoskeletal: No Tenderness to Palpation of Joints or Extremities Neurological: Cranial nerves II-XII grossly intact Psych/Mental Status: Normal Affect, Appropriate Laboratory Results 05/10/20 22:10: WBC 6.0, RBC 3.81 L, Hgb 12.1, Hct 37.0, MCV 97.1, MCH 31.8, MCHC 32.7, RDW Std Deviation 49.8 H, RDW Coeff of Chandan 14.1, Plt Count 238, MPV 9.5, Immature Gran % (Auto) 0.200, Neut % (Auto) 50.3, Lymph % (Auto) 37.1, Warren % (Auto) 7.2, Eos % (Auto) 4.0, Baso % (Auto) 1.2 H, Absolute Neuts (auto) 3.0, Absolute Lymphs (auto) 2.22, Nucleated RBC % 0 05/10/20 22:10: Sodium 141, Potassium 3.8, Chloride 111 H, Carbon Dioxide 26.0, Anion Gap 4 L, BUN 15, Creatinine 0.85, Estim Creat Clear Calc 43.15, Est GFR (MDRD) Af Amer 84, Est GFR (MDRD) Non-Af 70, BUN/Creatinine Ratio 17.7, Glucose 96, Calcium 9.4, Troponin I 0.043, TSH 2.49 Current Medications Acetaminophen (Acetaminophen 325 Mg Tablet) 650 mg PO Q6H PRN PRN PRN Reason: Pain Score 1-10/Temp > 100.7 F Apixaban (Apixaban 5 Mg Tablet) 5 mg PO BID [facility] Sodium Chloride () 250 mls @ 15 mls/hr IV .[id number] PRN PRN Reason: Saline Flush Sodium Chloride () 250 mls @ 15 mls/hr IV .[id number] PRN PRN Reason: Additional IVPB Infusion Levothyroxine Sodium (Levothyroxine 25 Mcg Tablet) 25 mcg PO DAILY@0600 [facility] Loperamide HCl (Loperamide 2 Mg Capsule) 2 mg PO Q4H PRN PRN PRN Reason: Diarrhea Melatonin (Melatonin 3 Mg Tablet) 3 mg PO QHS PRN PRN PRN Reason: INSOMNIA Metoprolol Tartrate (Metoprolol Tartrate 25 Mg Tablet) 25 mg PO BID [facility] Last Admin: 05/11/20 00:24 Dose: 25 mg Documented by: Nutritional Formula (Lactose Free) (Ensure Enlive 120 Ml Liquid) 120 ml PO 4X/DAY [facility] Ondansetron HCl (Ondansetron 4 Mg/2 Ml Vial) 4 mg IV Q8H PRN PRN PRN Reason: NAUSEA/VOMITING Prochlorperazine Edisylate (Prochlorperazine 10 Mg/2 Ml Vial) 5 mg IV Q4H PRN PRN PRN Reason: Breakthrough Nausea/Vomiting Sodium Chloride (0.9% Saline Lock 10 Ml Syringe) 10 - 40 ml IV UD PRN PRN Reason: SALINE FLUSH Assessment/Plan All Active Problems (Last Reviewed 05/11/20 @ 00:[address] Rolf Lambert MD) Atrial fibrillation (Acute) Intermittent palpitations (Acute) New onset A. fib Patient with atrial fibrillation on monitor. Initially in rapid ventricular response. Received metoprolol 5 mg IV at emergency department. Therapeutic dose of Lovenox subcutaneous was given at emergency department. Will start patient on low-dose metoprolol p.o. twice daily; and Eliquis. Place on PCU on telemetry Review of old records: Echocardiogram on 12/17/2018 showed stage I diastolic dysfunction with normal ejection fraction. Mild mitral valve insufficiency. Trivial aortic valve insufficiency. Potassium was 3.8. Will order 20 mEq of potassium. Check magnesium level. Review of emergency department labs: TSH is normal. Impression of chest x-ray by radiologist: Linear opacity in the left lower lobe which likely represent atelectasis. Otherwise clear lungs. Actual chest x-ray image was independently interpreted. I agree with radiologist interpretation. Atelectasis Incentive spirometer ordered. Hypothyroidism Normal TSH Continue Synthroid DVT prophylaxis Not indicated since patient received Lovenox therapeutic dose for A. fib at emergency department; and Eliquis has been ordered for A. fib. OBSV E&M: [id number] Initial observation care L3
[2020-05-11] MEDS: Levothyroxine 25 MCG TABLET PO (05:27)
[2020-05-11 06:35] LABS: Magnesium 1.9 mg/dL (1.6-2.6)
[2020-05-11] MEDS: APIXABAN 5 MG TABLET PO (08:07)
[2020-05-11] MEDS: Aspirin 81 MG TAB.CHEW PO (08:07)
[2020-05-11] MEDS: Magnesium Chloride 64 MG Delay Rel.Tablet 128 MG PO (09:17)
--- NOTE | 2020-05-11 11:25 | DCINST_ITS ---
- Discharge Diagnoses Current Active Problems: Current Active and Chronic Problems (Last Reviewed 05/11/20 @ 01:[address] Rolf Lambert MD) Hypothyroidism (Chronic) Atrial fibrillation (Acute) You will use the following diet at home:: Cardiac Your food should be the consistency of: Regular Your liquids should be the consistency of: Regular/Thin Discharge Activity: Return to Normal Activity Allergies/Adverse Reactions: Allergies No Known Allergies Allergy (Verified 05/10/20 20:30) Medications to take at Discharge Levothyroxine Sodium 25 mcg PO DAILY 04/07/20 Aspirin [Aspirin, Baby] 81 mg PO DAILY 05/10/20 Vitamin C 05/10/20 Apixaban [Eliquis] 5 mg PO BID #60 tab 05/11/20 Metoprolol Tartrate [Lopressor (beta morenita)] 25 mg PO BID #60 tab 05/11/20 The following prescriptions were given: Apixaban [Eliquis] 5 mg PO BID #60 tab Transmission Status: Pending to [facility]/pharmacy #[id number] Metoprolol Tartrate [Lopressor (beta morenita)] 25 mg PO BID #60 tab Transmission Status: Pending to [facility]/pharmacy #[id number] Primary Care Physician: Akil Huang Chi, MD [Primary Care Provider] - Please follow up with your Primary Care Physician in: 1-2 weeks Test Results: Test results from this visit will be discussed in further detail at your follow- up appointment, if applicable. Please Follow Up With: Lexi Richardson MD When: 2-4 weeks Proposed Discharge Date: 05/11/20
--- NOTE | 2020-05-11 12:38 | CASEMGMT ---
Pt to be sent home on Eliquis at discharge. Pt does not have insurance and is self-pay at this time. This RN CM to room with [id number] 30 day free trial card at this time, explanation done-pt voices understanding. Pt voices no further questions/concerns/needs at this time. SStaten RN CM
--- NOTE | 2020-05-11 14:18 | DS.PCM_ITS ---
<Rafael Aviles - Last Filed: 05/11/20 14:18> Discharge Date and Diagnosis - Problem List Patient Problems: Active and Suspected Problems (Last Reviewed 05/11/20 @ 01:[address] Rolf Lambert MD) Atrial fibrillation (Acute) Date of Admission: 05/10/20 Date of Discharge: 05/11/20 - Primary Discharge Diagnosis Acute Problems: Active Problems (Last Reviewed 05/11/20 @ 01:[address] Rolf Lambert MD) Atrial fibrillation (Acute), new onset Hypothyroidism, hyperlipidemia - Secondary Discharge Diagnosis Chronic Problems: Chronic Problems (Last Reviewed 05/11/20 @ 01:[address] Rolf Lambert MD) Hypothyroidism (Chronic) Hyperlipidemia (Chronic) Hospital Course and Treatment Imaging Results: RAD/Chest 1 View (Portable) IMPRESSION: Linear opacity in the left lower lobe which likely represents atelectasis. Otherwise, clear lungs. 2D TTE: Interpretation Summary Normal LV size. Moderate concentric left ventricular hypertrophy. Left ventricular systolic function is normal. The estimated ejection fraction is 60 %. Pulmonary artery systolic pressure is 28 mmHg. Operations: None Procedures: 2-D Echocardiogram Summary of Care Provided: Hospital course: The patient is a 74 year old F past medical history of hyperlipidemia and hypothyroidism who presented to the emergency room with complaints of heart palpitations for 1 day with associated lightheadedness. She was found to have atrial fibrillation with mild tachycardia. She was given 1 dose of IV metoprolol with good improvement in her rate, and treated with 1 dose of therapeutic Lovenox. She was admitted to the PCU and placed on telemetry started on oral metoprolol and Eliquis. Her heart rate remained stable although she remained in atrial fibrillation. Her TSH was normal, echocardiogram with r esults as above no acute findings, troponin negative. She had mildly low magnesium which was supplemented. She was asymptomatic the following day. With her rate well controlled we advised her to follow-up with cardiology in 2 to 4 weeks, she should also follow-up with her PCP in 1 to 2 weeks. She was discharged home in stable condition. This patient was seen by Rafael Aviles PA-C under the supervision of Doctor Canela. [] Patient Problems: Active and Suspected Problems (Last Reviewed 05/11/20 @ 01:[address] Rolf Lambert MD) Atrial fibrillation (Acute) - Physical Exam Vitals/I&O's: Vital Signs Temp Pulse Resp BP Pulse Ox 98.5 F 97 18 107/77 96 05/11/20 08:03 05/11/20 08:07 05/11/20 08:13 05/11/20 08:07 05/11/20 08:03 Oxygen Delivery Method Room Air Weight: 136 lb 0.403 oz Body Mass Index (BMI) 25.7 Intake and Output for Last 24 Hours 05/09/20 05/10/20 05/11/20 23:59 23:59 23:59 Intake Total 600 / 600 720 / 720 Output Total 0 / 0 Balance 600 / 600 720 / 720 General: Alert, Oriented x3, Cooperative HEENT: Atraumatic, PERRLA, EOMI, Normocephalic Neck: Supple, No JVD, Negative Carotid Bruits Lungs: Clear to auscultation, Normal air movement Cardiovascular: Regular rate, No murmurs Abdomen: Bowel Sounds Present, Soft, Non Tender Extremities: No edema, Capillary Refill Less than 3 Seconds Skin: No rashes, No breakdown Musculoskeletal: No Tenderness to Palpation of Joints or Extremities Neurological: Cranial nerves II-XII grossly intact Psych/Mental Status: Normal Affect, Appropriate, Alert and oriented to time, place, person, mood and affect Laboratory Results 05/10/20 22:10: WBC 6.0, RBC 3.81 L, Hgb 12.1, Hct 37.0, MCV 97.1, MCH 31.8, MCHC 32.7, RDW Std Deviation 49.8 H, RDW Coeff of Chandan 14.1, Plt Count 238, MPV 9.5, Immature Gran % (Auto) 0.200, Neut % (Auto) 50.3, Lymph % (Auto) 37.1, Lamb % (Auto) 7.2, Eos % (Auto) 4.0, Baso % (Auto) 1.2 H, Absolute Neuts (auto) 3.0, Absolute Lymphs (auto) 2.22, Nucleated RBC % 0 05/10/20 22:10: Sodium 141, Potassium 3.8, Chloride 111 H, Carbon Dioxide 26.0, Anion Gap 4 L, BUN 15, Creatinine 0.85, Estim Creat Clear Calc 43.15, Est GFR (MDRD) Af Amer 84, Est GFR (MDRD) Non-Af 70, BUN/Creatinine Ratio 17.7, Glucose 96, Calcium 9.4, Troponin I 0.043, TSH 2.49 05/11/20 04:53: Magnesium 1.9 Current Medications Acetaminophen (Acetaminophen 325 Mg Tablet) 650 mg PO Q6H PRN PRN PRN Reason: Pain Score 1-10/Temp > 100.7 F Apixaban (Apixaban 5 Mg Tablet) 5 mg PO BID [facility] Last Admin: 05/11/20 08:07 Dose: 5 mg Documented by: Aspirin (Aspirin 81 Mg Tab.Chew) 81 mg PO DAILYCM [facility] Last Admin: 05/11/20 08:07 Dose: 81 mg Documented by: Sodium Chloride () 250 mls @ 15 mls/hr IV .[id number] PRN PRN Reason: Saline Flush Sodium Chloride () 250 mls @ 15 mls/hr IV .[id number] PRN PRN Reason: Additional IVPB Infusion Levothyroxine Sodium (Levothyroxine 25 Mcg Tablet) 25 mcg PO DAILY@0600 [facility] Last Admin: 05/11/20 05:27 Dose: 25 mcg Documented by: Loperamide HCl (Loperamide 2 Mg Capsule) 2 mg PO Q4H PRN PRN PRN Reason: Diarrhea Melatonin (Melatonin 3 Mg Tablet) 3 mg PO QHS PRN PRN PRN Reason: INSOMNIA Metoprolol Tartrate (Metoprolol Tartrate 25 Mg Tablet) 25 mg PO BID [facility] Last Admin: 05/11/20 08:07 Dose: 25 mg Documented by: Nutritional Formula (Lactose Free) (Ensure Enlive 120 Ml Liquid) 120 ml PO 4X/DAY [facility] Last Admin: 05/11/20 13:13 Dose: Not Given Documented by: Ondansetron HCl (Ondansetron 4 Mg/2 Ml Vial) 4 mg IV Q8H PRN PRN PRN Reason: NAUSEA/VOMITING Prochlorperazine Edisylate (Prochlorperazine 10 Mg/2 Ml Vial) 5 mg IV Q4H PRN PRN PRN Reason: Breakthrough Nausea/Vomiting Sodium Chloride (0.9% Saline Lock 10 Ml Syringe) 10 - 40 ml IV UD PRN PRN Reason: SALINE FLUSH Discharge Diet: Low fat/ Low Cholesterol, 2000 mg Sodium Diet Discharge Activity: Return to Normal Activity Home Medications: Medications to take at Discharge Levothyroxine Sodium 25 mcg PO DAILY 04/07/20 Aspirin [Aspirin, Baby] 81 mg PO DAILY 05/10/20 Vitamin C 05/10/20 Apixaban [Eliquis] 5 mg PO BID #60 tab 05/11/20 Metoprolol Tartrate [Lopressor (beta morenita)] 25 mg PO BID #60 tab 05/11/20 Following Prescriptions Were Given to Patient: Apixaban [Eliquis] 5 mg PO BID #60 tab Transmission Status: Received by [facility] #[id number] Metoprolol Tartrate [Lopressor (beta morenita)] 25 mg PO BID #60 tab Transmission Status: Received by [facility]/pharmacy #[id number] Primary Care Physician: Akil Huang Chi, MD [Primary Care Provider] - Please follow up with your Primary Care Physician in: 1-2 weeks Please Follow Up With: Lexi Richardson MD When: 2-4 weeks Disposition: Home Minutes spent on discharge:: 35 Patient Condition:: Stable Medical Necessity - Tobacco Use Smoking Status: Never smoker Meaningful Use Info Meaningful Use Diagnoses (Choose all that apply): None applicable <Jasper Canela - Last Filed: 05/11/20 14:37> Discharge Date and Diagnosis - Primary Discharge Diagnosis Acute Problems: Active Problems (Last Reviewed 05/11/20 @ 01:[address] Rolf Lambert MD) Atrial fibrillation (Acute) - Secondary Discharge Diagnosis Chronic Problems: Chronic Problems (Last Reviewed 05/11/20 @ 01:[address] Rolf Lambert MD) Hypothyroidism (Chronic) Hyperlipidemia (Chronic) Hospital Course and Treatment Summary of Care Provided: This patient was seen in conjunction with Rafael Aviles PA-C . I have independently interviewed and examined the patient and reviewed pertinent historical, laboratory, and other data. Please refer to Rafael Aviles PA-C note for details of this patient's presentation, findings, and recommendations. I have reviewed Rafael Aviles PA-C note and concur with documented findings. In brief, patient is a 74-year-old lady admitted with palpitations found to be in A. fib with RVR admitted to monitored bed for subsequent management Assessment 1. New onset A. fib with RVR 2. Hypothyroidism 3. Dyslipidemia Hospital course: As documented above Recommendations: 1. I have discussed the results of my overview and impressions with the patient 2. Options for management were reviewed - Physical Exam Vitals/I&O's: Vital Signs Temp Pulse Resp BP Pulse Ox 98.5 F 97 18 107/77 96 05/11/20 08:03 05/11/20 08:07 05/11/20 08:13 05/11/20 08:07 05/11/20 08:03 Oxygen Delivery Method Room Air Weight: 61.7 kg Body Mass Index (BMI) 25.7 Intake and Output for Last 24 Hours 05/09/20 05/10/20 05/11/20 23:59 23:59 23:59 Intake Total 600 / 600 720 / 720 Output Total 0 / 0 Balance 600 / 600 720 / 720 Laboratory Results 05/10/20 22:10: WBC 6.0, RBC 3.81 L, Hgb 12.1, Hct 37.0, MCV 97.1, MCH 31.8, MCHC 32.7, RDW Std Deviation 49.8 H, RDW Coeff of Chandan 14.1, Plt Count 238, MPV 9.5, Immature Gran % (Auto) 0.200, Neut % (Auto) 50.3, Lymph % (Auto) 37.1, Lamb % (Auto) 7.2, Eos % (Auto) 4.0, Baso % (Auto) 1.2 H, Absolute Neuts (auto) 3.0, Absolute Lymphs (auto) 2.22, Nucleated RBC % 0 05/10/20 22:10: Sodium 141, Potassium 3.8, Chloride 111 H, Carbon Dioxide 26.0, Anion Gap 4 L, BUN 15, Creatinine 0.85, Estim Creat Clear Calc 43.15, Est GFR (MDRD) Af Amer 84, Est GFR (MDRD) Non-Af 70, BUN/Creatinine Ratio 17.7, Glucose 96, Calcium 9.4, Troponin I 0.043, TSH 2.49 05/11/20 04:53: Magnesium 1.9 Current Medications Acetaminophen (Acetaminophen 325 Mg Tablet) 650 mg PO Q6H PRN PRN PRN Reason: Pain Score 1-10/Temp > 100.7 F Apixaban (Apixaban 5 Mg Tablet) 5 mg PO BID [facility] Last Admin: 05/11/20 08:07 Dose: 5 mg Documented by: Aspirin (Aspirin 81 Mg Tab.Chew) 81 mg PO DAILYCM [facility] Last Admin: 05/11/20 08:07 Dose: 81 mg Documented by: Sodium Chloride () 250 mls @ 15 mls/hr IV .[id number] PRN PRN Reason: Saline Flush Sodium Chloride () 250 mls @ 15 mls/hr IV .[id number] PRN PRN Reason: Additional IVPB Infusion Levothyroxine Sodium (Levothyroxine 25 Mcg Tablet) 25 mcg PO DAILY@0600 [facility] Last Admin: 05/11/20 05:27 Dose: 25 mcg Documented by: Loperamide HCl (Loperamide 2 Mg Capsule) 2 mg PO Q4H PRN PRN PRN Reason: Diarrhea Melatonin (Melatonin 3 Mg Tablet) 3 mg PO QHS PRN PRN PRN Reason: INSOMNIA Metoprolol Tartrate (Metoprolol Tartrate 25 Mg Tablet) 25 mg PO BID [facility] Last Admin: 05/11/20 08:07 Dose: 25 mg Documented by: Nutritional Formula (Lactose Free) (Ensure Enlive 120 Ml Liquid) 120 ml PO 4X/DAY [facility] Last Admin: 05/11/20 13:13 Dose: Not Given Documented by: Ondansetron HCl (Ondansetron 4 Mg/2 Ml Vial) 4 mg IV Q8H PRN PRN PRN Reason: NAUSEA/VOMITING Prochlorperazine Edisylate (Prochlorperazine 10 Mg/2 Ml Vial) 5 mg IV Q4H PRN PRN PRN Reason: Breakthrough Nausea/Vomiting Sodium Chloride (0.9% Saline Lock 10 Ml Syringe) 10 - 40 ml IV UD PRN PRN Reason: SALINE FLUSH OBSV E&M: [id number] Observation care discharge
== END 2020-05-11 11:25 | disposition home or self-care (01) ==
LOC: ED 22:51 → PCU 23:17
PROVIDERS: Admitting Provider Hospitalist; Emergency Provider Emergency Medicine; PCP Family Medicine Geriatric Medicine; Visit Provider Internal Medicine
DX: J98.11 Atelectasis (principal); I48.91 Unspecified atrial fibrillation; E78.5 Hyperlipidemia, unspecified; E03.9 Hypothyroidism, unspecified; Z79.899 Other long term (current) drug therapy; Z79.82 Long term (current) use of aspirin; Z86.19 Personal history of other infectious and parasitic diseases; R94.31 Abnormal electrocardiogram [ECG] [EKG]
CPT/HCPCS: 36415; 71045; 80048; 83735; 84443; 84484; 85025; 93005; 93306; 96361; 96372; 96374; 99218; 99285; J7030; A4216; G0378

== ENCOUNTER → 2020-05-20 09:59 | Outpatient (CLI) | payer SELFPAY ==
[2020-05-10 23:52] VITALS: BMI 25.7
== END ==
PROVIDERS: PCP Family Medicine Geriatric Medicine; Visit Provider Family Medicine Geriatric Medicine
DX: E83.49 Other disorders of magnesium metabolism (principal)
CPT/HCPCS: 36415; 83735

== ENCOUNTER → 2020-11-09 12:25 | Outpatient (CLI) | payer SELFPAY ==
[2020-05-29 10:36] VITALS: BMI 24.3
[2020-11-09 12:54] LABS: Absolute Neutrophil Count 3.2 X10^3/uL (2.0-7.7); Basophil# 0.03 X10^3/uL; Basophil% 0.5 % (0-1); Eosinophil# 0.25 X10^3/uL; Eosinophils% 3.9 % (0-5); Hematocrit 36.9 % (37-47); Hemoglobin 11.7 g/dL (12.0-15.0); Lymphocyte % 38.8 % (19-41); Mean Corp Hgb Conc 31.7 g/dL (32-36); Mean Corpuscular Hgb 31.2 pg (27.0-32.0); Mean Corpuscular Volume 98.4 fL (81-99); Monocyte# 0.45 X10^3/uL; NRBC Flagged by Analyzer 0 % (0-5); Neutrophil # 3.18 X10^3/uL (2.7-7.7); Neutrophil % 49.3 % (47-70); Platelet Count 234 K/mm3 (150-450); RBC Distribution Width CV 13.7 % (11.6-14.6); RBC Distribution Width SD 49.9 fl (35.1-43.9); Red Blood Count 3.75 M/mm3 (4.2-5.4); White Blood Count 6.4 K/mm3 (4.4-11.0)
[2020-11-09 13:25] LABS: Vitamin D,25 Hydroxy 35.7 ng/mL
[2020-11-09 13:37] LABS: ALB/GLOB Ratio 0.9 RATIO (0.9-2.4); AST(SGOT) 25 U/L (15-37); Alanine Aminotransfer ALT/SGPT 16 U/L (13-56); Albumin, Serum 3.2 g/dL (3.2-5.0); Alkaline Phosphatase 57 U/L (45-117); Anion Gap 4 (5-15); BUN 22 mg/dL (7-18); BUN/Creat Ratio 28.7 RATIO (10-20); Calcium,Total 9.2 mg/dL (8.5-10.1); Chloride 105 mmol/L (98-107); Creatinine, Serum 0.77 mg/dL (0.55-1.02); EST Glomerular Filtration Rate 78 mL/min (>60); Est Glom Filt Rate - Afr Amer 94 mL/min (>60); Globulin 3.7 g/dL (2.2-4.2); Glucose 82 mg/dL (74-106); Potassium 4.3 mmol/L (3.5-5.1); Protein, Total 6.9 g/dL (6.4-8.2); Sodium Level 139 mmol/L (136-145); Thyroid Stim Hormone (TSH) 2.73 uIU/mL (0.358-3.74)
== END ==
PROVIDERS: PCP Family Medicine Geriatric Medicine; Visit Provider Family Medicine Geriatric Medicine
DX: I10 Essential (primary) hypertension (principal); E55.9 Vitamin D deficiency, unspecified
CPT/HCPCS: 36415; 80053; 82306; 84443; 85025

== ENCOUNTER → 2021-05-10 11:26 | Outpatient (CLI) | payer SELFPAY ==
[2021-05-10 12:39] LABS: Absolute Lymphocyte Count 2.37 X10^3/uL (0.83-4.51); Basophil# 0.04 X10^3/uL; Basophil% 0.7 % (0-1); Eosinophil# 0.18 X10^3/uL; Hematocrit 36.4 % (37-47); Hemoglobin 11.9 g/dL (12.0-15.0); Lymphocyte # 2.37 X10^3/ul (0.83-4.51); Lymphocyte % 39.6 % (19-41); Mean Corp Hgb Conc 32.7 g/dL (32-36); Mean Corpuscular Hgb 31.6 pg (27.0-32.0); Mean Corpuscular Volume 96.6 fL (81-99); Monocyte% 6.7 % (0-10); NRBC Flagged by Analyzer 0 % (0-5); Neutrophil # 2.98 X10^3/uL (2.7-7.7); Neutrophil % 49.8 % (47-70); Platelet Count 229 K/mm3 (150-450); RBC Distribution Width CV 13.8 % (11.6-14.6); RBC Distribution Width SD 49.1 fl (35.1-43.9); Red Blood Count 3.77 M/mm3 (4.2-5.4)
[2021-05-10 12:47] LABS: Vitamin D,25 Hydroxy 38.2 ng/mL
[2021-05-10 12:55] LABS: ALB/GLOB Ratio 0.8 RATIO (0.9-2.4); AST(SGOT) 27 U/L (15-37); Alanine Aminotransfer ALT/SGPT 27 U/L (13-56); Albumin, Serum 3.4 g/dL (3.2-5.0); Alkaline Phosphatase 50 U/L (45-117); Anion Gap 4 (5-15); BUN 22 mg/dL (7-18); BUN/Creat Ratio 25.3 RATIO (10-20); Calcium,Total 9.3 mg/dL (8.5-10.1); Chloride 105 mmol/L (98-107); Creatinine, Serum 0.87 mg/dL (0.55-1.02); EST Glomerular Filtration Rate 67 mL/min (>60); Est Glom Filt Rate - Afr Amer 82 mL/min (>60); Globulin 4.1 g/dL (2.2-4.2); Glucose 89 mg/dL (74-106); Protein, Total 7.5 g/dL (6.4-8.2); Sodium Level 138 mmol/L (136-145); Thyroid Stim Hormone (TSH) 3.16 uIU/mL (0.358-3.74)
== END ==
PROVIDERS: PCP Family Medicine Geriatric Medicine; Visit Provider Family Medicine Geriatric Medicine
DX: I10 Essential (primary) hypertension (principal); E55.9 Vitamin D deficiency, unspecified
CPT/HCPCS: 36415; 80053; 82306; 84443; 85025

== ENCOUNTER → 2022-01-13 | Outpatient (CLI) | payer SELFPAY ==
[2022-01-13 12:33] LABS: Absolute Lymphocyte Count 1.59 X10^3/uL (0.83-4.51); Absolute Neutrophil Count 2.9 X10^3/uL (2.0-7.7); Basophil# 0.03 X10^3/uL; Basophil% 0.6 % (0-1); Eosinophil# 0.27 X10^3/uL; Eosinophils% 5.2 % (0-5); Hematocrit 37.3 % (37-47); Lymphocyte # 1.59 X10^3/ul (0.83-4.51); Lymphocyte % 30.7 % (19-41); Mean Corp Hgb Conc 32.2 g/dL (32-36); Mean Corpuscular Hgb 31.7 pg (27.0-32.0); Mean Corpuscular Volume 98.7 fL (81-99); Mean Platelet Vol. 9.9 fl (6.2-12.0); Monocyte# 0.43 X10^3/uL; Monocyte% 8.3 % (0-10); NRBC Flagged by Analyzer 0 % (0-5); Neutrophil # 2.85 X10^3/uL (2.7-7.7); Platelet Count 235 K/mm3 (150-450); RBC Distribution Width CV 14.1 % (11.6-14.6); RBC Distribution Width SD 51.3 fl (35.1-43.9); Red Blood Count 3.78 M/mm3 (4.2-5.4); White Blood Count 5.2 K/mm3 (4.4-11.0)
[2022-01-13 12:49] LABS: Vitamin D,25 Hydroxy 55.6 ng/mL
[2022-01-13 13:08] LABS: ALB/GLOB Ratio 0.9 RATIO (0.9-2.4); AST(SGOT) 30 U/L (15-37); Alanine Aminotransfer ALT/SGPT 22 U/L (13-56); Albumin, Serum 3.3 g/dL (3.2-5.0); Alkaline Phosphatase 57 U/L (45-117); Anion Gap 4 (5-15); BUN 30 mg/dL (7-18); BUN/Creat Ratio 33.3 RATIO (10-20); Calcium,Total 9.6 mg/dL (8.5-10.1); Chloride 106 mmol/L (98-107); EST Glomerular Filtration Rate 64 mL/min (>60); Est Glom Filt Rate - Afr Amer 78 mL/min (>60); Globulin 3.8 g/dL (2.2-4.2); Glucose 85 mg/dL (74-106); Potassium 4.4 mmol/L (3.5-5.1); Protein, Total 7.1 g/dL (6.4-8.2); Sodium Level 138 mmol/L (136-145); Thyroid Stim Hormone (TSH) 3.17 uIU/mL (0.358-3.74)
== END | disposition home or self-care (01) ==
LOC: POLAB3 08:48
PROVIDERS: PCP Family Medicine Geriatric Medicine; Visit Provider Family Medicine Geriatric Medicine
DX: E55.9 Vitamin D deficiency, unspecified (principal); I10 Essential (primary) hypertension
CPT/HCPCS: 36415; 80053; 82306; 84443; 85025

== ENCOUNTER → 2022-11-02 | Outpatient (CLI) | payer OTHER, SELFPAY ==
[2022-11-02 17:25] LABS: Absolute Lymphocyte Count 2.21 X10^3/uL (0.83-4.51); Basophil# 0.04 X10^3/uL; Basophil% 0.7 % (0-1); Eosinophil# 0.23 X10^3/uL; Eosinophils% 3.9 % (0-5); Hematocrit 35.8 % (37-47); Hemoglobin 11.3 g/dL (12.0-15.0); Lymphocyte # 2.21 X10^3/ul (0.83-4.51); Lymphocyte % 37.5 % (19-41); Mean Corp Hgb Conc 31.6 g/dL (32-36); Mean Corpuscular Hgb 31.7 pg (27.0-32.0); Mean Corpuscular Volume 100.3 fL (81-99); Mean Platelet Vol. 10.1 fl (6.2-12.0); Monocyte# 0.44 X10^3/uL; Monocyte% 7.5 % (0-10); NRBC Flagged by Analyzer 0 % (0-5); Neutrophil # 2.95 X10^3/uL (2.7-7.7); Neutrophil % 50.1 % (47-70); Platelet Count 248 K/mm3 (150-450); RBC Distribution Width SD 51.7 fl (35.1-43.9); Red Blood Count 3.57 M/mm3 (4.2-5.4); White Blood Count 5.9 K/mm3 (4.4-11.0)
[2022-11-02 17:45] LABS: Vitamin D,25 Hydroxy 56.3 ng/mL
[2022-11-02 18:01] LABS: ALB/GLOB Ratio 0.9 RATIO (0.9-2.4); AST(SGOT) 32 U/L (15-37); Alanine Aminotransfer ALT/SGPT 29 U/L (13-56); Albumin, Serum 3.4 g/dL (3.2-5.0); Alkaline Phosphatase 53 U/L (45-117); Anion Gap 5 (5-15); BUN 30 mg/dL (7-18); BUN/Creat Ratio 29.4 RATIO (10-20); Calcium,Total 9.7 mg/dL (8.5-10.1); Chloride 106 mmol/L (98-107); Creatinine, Serum 1.02 mg/dL (0.55-1.02); EST Glomerular Filtration Rate 56 mL/min (>60); Est Glom Filt Rate - Afr Amer 67 mL/min (>60); Globulin 3.8 g/dL (2.2-4.2); Glucose 88 mg/dL (74-106); Potassium 4.3 mmol/L (3.5-5.1); Protein, Total 7.2 g/dL (6.4-8.2); Sodium Level 139 mmol/L (136-145); Thyroid Stim Hormone (TSH) 1.31 uIU/mL (0.358-3.74)
== END | disposition home or self-care (01) ==
LOC: POLAB3 14:15
PROVIDERS: PCP Family Medicine Geriatric Medicine; Visit Provider Family Medicine Geriatric Medicine
DX: I10 Essential (primary) hypertension (principal)
CPT/HCPCS: 36415; 80053; 82306; 84443; 85025

== ENCOUNTER → 2023-05-24 | Outpatient (CLI) | payer OTHER, SELFPAY ==
[2023-05-24 16:09] LABS: Absolute Lymphocyte Count 2.11 X10^3/uL (0.83-4.51); Absolute Neutrophil Count 2.9 X10^3/uL (2.0-7.7); Basophil# 0.04 X10^3/uL; Basophil% 0.7 % (0-1); Eosinophil# 0.27 X10^3/uL; Eosinophils% 4.7 % (0-5); Hematocrit 34.3 % (37-47); Lymphocyte # 2.11 X10^3/ul (0.83-4.51); Lymphocyte % 36.4 % (19-41); Mean Corp Hgb Conc 32.1 g/dL (32-36); Mean Corpuscular Hgb 31.5 pg (27.0-32.0); Mean Corpuscular Volume 98.3 fL (81-99); Monocyte# 0.44 X10^3/uL; Monocyte% 7.6 % (0-10); NRBC Flagged by Analyzer 0 % (0-5); Neutrophil # 2.92 X10^3/uL (2.7-7.7); Neutrophil % 50.3 % (47-70); Platelet Count 219 K/mm3 (150-450); RBC Distribution Width CV 14.7 % (11.6-14.6); RBC Distribution Width SD 53.1 fl (35.1-43.9); Red Blood Count 3.49 M/mm3 (4.2-5.4); White Blood Count 5.8 K/mm3 (4.4-11.0)
[2023-05-24 16:19] LABS: Vitamin D,25 Hydroxy 35.2 ng/mL
[2023-05-24 16:29] LABS: ALB/GLOB Ratio 0.9 RATIO (0.9-2.4); AST(SGOT) 23 U/L (15-37); Alanine Aminotransfer ALT/SGPT 23 U/L (13-56); Albumin, Serum 3.3 g/dL (3.2-5.0); Alkaline Phosphatase 57 U/L (45-117); Anion Gap 6 (5-15); BUN 35 mg/dL (7-18); BUN/Creat Ratio 30.7 RATIO (10-20); Calcium,Total 8.8 mg/dL (8.5-10.1); Chloride 106 mmol/L (98-107); Creatinine, Serum 1.14 mg/dL (0.55-1.02); EST Glomerular Filtration Rate 49 mL/min (>60); Est Glom Filt Rate - Afr Amer 59 mL/min (>60); Globulin 3.5 g/dL (2.2-4.2); Glucose 89 mg/dL (74-106); Potassium 4.7 mmol/L (3.5-5.1); Protein, Total 6.8 g/dL (6.4-8.2); Sodium Level 140 mmol/L (136-145)
== END | disposition home or self-care (01) ==
PROVIDERS: PCP Family Medicine Geriatric Medicine; Visit Provider Family Medicine Geriatric Medicine
DX: I10 Essential (primary) hypertension (principal); E55.9 Vitamin D deficiency, unspecified
CPT/HCPCS: 36415; 80053; 82306; 84443; 85025